=== PATIENT | male | born 1970 ===

== ENCOUNTER 2016-09-22 14:01 | Emergency (ER) | payer MEDICAID ==
[2016-09-22 14:01] VITALS: BMI 31.2
[2016-09-22 14:08] VITALS: BP 128/85; PULSE 96; RESP 20; TEMP 97.6; O2SAT 95
[2016-09-22] MEDS ORDERED: Lidocaine 2% w Epi 1:100,000 Inj IJ ONE (14:08)
[2016-09-22] MEDS ORDERED: Absorbable Gelatin Sponge Size 12-7 ONE (14:18)
--- NOTE | 2016-09-22 14:30 | ED PDOC ---
Upper Extremity Pain/Injury Time Seen by Provider: 09/22/16 14:09 Chief Complaint (Nursing): Finger,Hand,&Wrist Chief Complaint (Provider): Left Hand Injury History Per: Patient History/Exam Limitations: no limitations Onset/Duration Of Symptoms: Hrs (since 21:00 last night) Current Symptoms Are (Timing): Still Present Additional Complaint(s): 14:09 Ajit Rdz is a 45 year old male with a history of seizures that presents to the ED with a chief complaint of a left hand puncture wound that he sustained after leaning on the spoke of a metal fence at 9PM last night. The wound is located in the thenar aspect of the palm; patient states that it has been continuously bleeding bright red blood and is swollen, but denies any numbness, tingling, or decreased range of motion. Tetanus vaccination UTD. PMD: Deric Horton Past Medical History Reviewed: Historical Data, Nursing Documentation, Vital Signs Vital Signs: Last Vital Signs Temp 97.6 F 09/22/16 14:05 Pulse 96 H 09/22/16 14:05 Resp 20 09/22/16 14:05 BP 128/85 09/22/16 14:05 Pulse Ox 95 09/22/16 14:05 - Medical History PMH: Asthma (no longer per pt), Depression, Fractures (right ankle), HTN (no longer), Seizures Denies: Chronic Kidney Disease - Surgical History Surgical History: Endoscopy, Hernia Repair (umbilical ) - Family History Family History: States: Unknown Family Hx - Immunization History Hx Tetanus Toxoid Vaccination: Yes (UTD as of 3 years ago) - Home Medications Home Medications: Ambulatory Orders Medication Instructions Recorded Sertraline [Zoloft] 50 mg PO HS #0 tab 09/18/14 Lamotrigine [Lamotrigine ER] 200 mg PO BID 03/29/15 Amoxicillin 500 mg PO Q8 07/26/15 traMADol [Ultram] 50 mg PO TID PRN 07/26/15 Amoxicillin/Potassium Clav 1 each PO BID #10 tablet 08/11/15 [Amox-Clav 875-125 mg Tablet] Naproxen [Naprosyn] 500 mg PO Q12H #20 tab 04/02/16 Non-Formulary 1 ea .ROUTE Q6 #1 ea 04/02/16 Cephalexin [cephalexin] 500 mg PO BID #20 cap 09/22/16 - Allergies Allergies/Adverse Reactions: Allergies Allergy/AdvReac Type Severity Reaction Status Date / Time braswell AdvReac Mild URTICARIA Uncoded 09/22/16 14:05 Review of Systems Musculoskeletal: Positive for: Hand Pain (left hand puncture wound) Neurological: Negative for: Numbness, Other (no tingling) Physical Exam - Reviewed Nursing Documentation Reviewed: Yes Vital Signs Reviewed: Yes - Physical Exam Appears: Positive for: Non-toxic, No Acute Distress Head Exam: Positive for: ATRAUMATIC, NORMOCEPHALIC Skin: Positive for: Normal Color, Warm Eye Exam: Positive for: Normal appearance Extremity: Positive for: Normal ROM, Swelling (mild swelling of left hand), Other (left hand puncture wound 0.5 cm wide and very deep. Wound is actively bleeding bright red blood. ) Neurologic/Psych: Positive for: Alert, calculus teacher II-XII, Oriented - ECG O2 Sat by Pulse Oximetry: 95 (RA) Pulse Ox Interpretation: Normal Medical Decision Making Medical Decision Makin:25 Initial Impression: Left Hand Wound on Thenar Aspect of Left Palm Initial Plan: * Laceration Procedure Left Hand Wound * Reevaluation * gel-foam used to continue with to stop bleeding. lido/epi used to stop bleeding. Telfa and Kerlix used and extra provided. pt d/c with keflex. strongly avsed to have f/u advised not to wet and remove gel foam in 3 days. 14:30 Patient tolerated procedure well, with no immediate complications. Patient will be discharged home with Rx for Ultram. Counseling was provided and all questions were answered regarding diagnosis and need for follow up with hand specialist. There is agreement to discharge plan. Return if symptoms persist or worsen. Scribe Attestation: Documented by Nilam Mcduffie, acting as a scribe for Mary Simpson PA-C. Provider Scribe Attestation: All medical record entries made by the Scribe were at my direction and personally dictated by me. I have reviewed the chart and agree that the record accurately reflects my personal performance of the history, physical exam, medical decision making, and the department course for this patient. I have also personally directed, reviewed, and agree with the discharge instructions and disposition Procedures - Laceration/Wound Repair Hand Wound Length (cm): 0.5 Wound's Depth, Shape: into muscle, irregular, contused tissue Wound Explored: clean Irrigated w/ Saline (ccs): 250 (w/ betadine + NS) Anesthesia: Lidocaine w/ Epi Volume Anesthetic (ccs): 3 Wound Debrided: minimal Wound Repaired With: Skin adhesive (Gelfoam) Wound Complexity: Intermediate (small arterial bleed stopped) Sterile Dressing Applied?: Yes Disposition - Clinical Impression Clinical Impression: Puncture wound, Laceration of left hand - Patient ED Disposition Is Patient to be Admitted: No Counseled Patient/Family Regarding: Need For Followup, Rx Given - Disposition Referrals: Colton Chapa MD [Staff Provider] - Disposition: Routine/Home Disposition Time: 14:30 Condition: STABLE Prescriptions: Cephalexin [cephalexin] 500 mg PO BID #20 cap Instructions: Puncture Wound (ED)
== END 2016-09-22 14:41 | disposition home or self-care (01) ==
LOC: H.ER 14:01
DX: S61.432A Puncture wound without foreign body of left hand, initial encounter (principal); W22.8XXA Striking against or struck by other objects, initial encounter; Y92.89 Other specified places as the place of occurrence of the external cause

== ENCOUNTER 2017-02-22 22:33 | Emergency (ER) | payer MEDICAID ==
[2017-02-22 22:33] VITALS: BMI 31.2
[2017-02-22 22:58] VITALS: BP 145/80; PULSE 70; RESP 16; TEMP 98.6; O2SAT 99
--- NOTE | 2017-02-22 23:20 | ED PDOC ---
HPI: Wound Care - HPI Time Seen by Provider: 02/22/17 23:05 Chief Complaint (Nursing): Wound Check Chief Complaint (Provider): right ankle pain History Per: Patient Additional Complaint(s): Patient is s/p surgery to right ankle yesterday at [facility] and he presents to ED ryan stating that drain that was placed came out of wound. Patient has chronic open wound to right ankle and had debridement of wound done by a plastic surgeon at [facility] yesterday. He tried to contact the plastic surgeon and was unable to so he came here. Patient denies any fever. He is concerned that blood will pool in this wound due to drain not working. Past Medical History Reviewed: Historical Data, Nursing Documentation, Vital Signs Vital Signs: Last Vital Signs Temp 98.6 F 02/22/17 22:55 Pulse 70 02/22/17 22:55 Resp 16 02/22/17 22:55 BP 145/80 02/22/17 22:55 Pulse Ox 99 02/22/17 22:55 - Medical History PMH: Asthma, Depression, Fractures (right ankle), HTN, Seizures - Surgical History Surgical History: Endoscopy, Hernia Repair (umbilical ) Other surgeries: multiple surgeries to right ankle - Family History Family History: States: No Known Family Hx - Living Arrangements Living Arrangements: With Family - Social History Current smoker - smoking cessation education provided: No Alcohol: None Drugs: Denies - Immunization History Hx Tetanus Toxoid Vaccination: Yes (UTD as of 3 years ago) - Home Medications Home Medications: Ambulatory Orders Medication Instructions Recorded Sertraline [Zoloft] 50 mg PO HS #0 tab 09/18/14 Lamotrigine [Lamotrigine ER] 200 mg PO BID 03/29/15 Amoxicillin 500 mg PO Q8 07/26/15 traMADol [Ultram] 50 mg PO TID PRN 07/26/15 Amoxicillin/Potassium Clav 1 each PO BID #10 tablet 08/11/15 [Amox-Clav 875-125 mg Tablet] Naproxen [Naprosyn] 500 mg PO Q12H #20 tab 04/02/16 Non-Formulary 1 ea .ROUTE Q6 #1 ea 04/02/16 Cephalexin [cephalexin] 500 mg PO BID #20 cap 09/22/16 - Allergies Allergies/Adverse Reactions: Allergies Allergy/AdvReac Type Severity Reaction Status Date / Time braswell AdvReac Mild URTICARIA Uncoded 09/22/16 14:05 Review of Systems ROS Statement: Except As Marked, All Systems Reviewed And Found Negative Constitutional: Positive for: Fever (tactile) Musculoskeletal: Positive for: Other (drain fell out of right ankle wound) Physical Exam - Reviewed Nursing Documentation Reviewed: Yes Vital Signs Reviewed: Yes - Physical Exam Appears: Positive for: Well, Non-toxic, No Acute Distress Skin: Negative for: Rash Eye Exam: Positive for: Normal appearance Cardiovascular/Chest: Positive for: Regular Rate, Rhythm Respiratory: Positive for: Normal Breath Sounds Extremity: Positive for: Other (6 cm by 2 cm dehiscence noted to dorsum of right ankle, no active bleeding, no acute infection noted) Neurologic/Psych: Positive for: Alert, Oriented - ECG O2 Sat by Pulse Oximetry: 99 Pulse Ox Interpretation: Normal Medical Decision Making Medical Decision Makin46 year old with wound to right ankle Plan: Podiatry consult Patient was seen at bedside by podiatry resident, Dr. Reyes. She re-dressed wound and instructed patient to follow up GEORGE with surgeon who placed the drain. As per podiatry resident, patient is stable for discharge. Disposition - Clinical Impression Clinical Impression: Encounter for postoperative wound check - Patient ED Disposition Is Patient to be Admitted: No Counseled Patient/Family Regarding: Diagnosis, Need For Followup - Disposition Referrals: Julio Burns MD [Staff Provider] - Disposition: Routine/Home Disposition Time: 00:41 Condition: STABLE Additional Instructions: FOLLOW UP SOON POSSIBLE WITH SURGEON FROM [facility]. Instructions: Acute Wound Care (ED) Forms: [employer] (Czech)
[2017-02-23] MEDS ORDERED: Silver Sulfadiazine 1% CREAM (50 gm) TOP STA (00:40)
--- NOTE | 2017-02-23 01:15 | CP.PCM.CON ---
History of Present Illness - History of Present Illness History of Present Illness: 46 year old male patient seen in ED for right ankle wound. Patient is well known to podiatry service. Patient states that yesterday he had a wound debridement done to the wound on the front of his right ankle at [facility] with plastic surgeon Dr. Tripp, recommended to him by Dr. Burns. Patient states while at [facility] they placed a wound vac on his right ankle but was not checked for function prior to his discharge from that hospital. Patient states the vac cartridge has filled up and no longer works, and is afraid blood will start pooling in his wound. Patient states he has tried contacting Dr. Tripp with no success, which is why he presented to [place] ED. Patient states he also tried contacting the wound vac company to receive a new cartridge but was unsuccessful as well. Patient states he does not have any empty cartridges. Patient reports tenderness to his right ankle wound. Patient denies N/V/F/D/C/SOB. No other pedal complaints at this time. Review of Systems - Review of Systems All systems: reviewed and no additional remarkable complaints except (as per HPI ) Past Patient History - Infectious Disease Hx of Infectious Diseases: None - Tetanus Immunizations Tetanus Immunization: Unknown - Past Medical History & Family History Past Medical History?: Yes - Past Social History Alcohol: None Drugs: Denies - CARDIAC Hx Hypertension: Yes - PULMONARY Hx Asthma: Yes - NEUROLOGICAL Hx Seizures: Yes - HEENT Hx HEENT Problems: No - RENAL Hx Chronic Kidney Disease: No - HEMATOLOGICAL/ONCOLOGICAL Hx Blood Transfusions: Yes Hx Cirrhosis: Yes (per old chart) Other/Comment: HX OF LIVER TROUBLE - INTEGUMENTARY Hx Dermatological Problems: Yes (Wound Dehiscence right ankle) - MUSCULOSKELETAL/RHEUMATOLOGICAL Hx Fractures: Yes (right ankle) - GASTROINTESTINAL Hx Gastrointestinal Disorders: No - GENITOURINARY/GYNECOLOGICAL Hx Genitourinary Disorders: No - PSYCHIATRIC Hx Depression: Yes - SURGICAL HISTORY Other/Comment: right foot surgery - ANESTHESIA Hx Anesthesia: Yes Hx Anesthesia Reactions: No Meds Allergies/Adverse Reactions: Allergies Allergy/AdvReac Type Severity Reaction Status Date / Time braswell AdvReac Mild URTICARIA Uncoded 09/22/16 14:05 Physical Exam - Constitutional Appears: Well, Non-toxic, No Acute Distress - Extremities Exam Additional comments: RLE focused physical exam Vascular: DP/PT pulses palpable 2/4; capillary fill time < 3 sec x5; TG warm to warm; mild non-pitting edema noted to ankle joint Neurologic: gross sensation intact Dermatologic: Superficial lenticular-shaped ulceration s/p excisional debridement measuring approximately 5 x 2 x 0.1 cm noted at the ankle joint. Wound base is 100% granular with active bleeding noted at proximal apex, and erythematous wound edges. No malodor, purulence, or clinical signs of infection noted. Orthopedic: tenderness to palpation of right ankle wound - Neurological Exam Neurological exam: Alert, Oriented x3 - Psychiatric Exam Psychiatric exam: Normal Affect, Normal Mood Results - Vital Signs Recent Vital Signs: Last Vital Signs Temp 98.6 F 02/22/17 22:55 Pulse 70 02/22/17 22:55 Resp 16 02/22/17 22:55 BP 145/80 02/22/17 22:55 Pulse Ox 99 02/23/17 00:42 Assessment & Plan - Assessment and Plan (Free Text) Assessment: 46 y/o male patient with non-healing Right anterior ankle wound Plan: Patient seen and evaluated in ED Chart and vitals reviewed = afebrile Discussed with attending, Dr. Katy Franz applied to right ankle wound and dressed with telfa, 4x4s, kerlix, and an RYAN wrap Discussed with patient that he should return to [facility] and receive follow up care with Dr. Qasim Conklin per podiatry standpoint Thank you for this consult, please reconsult podiatry as needed
== END 2017-02-23 01:10 | disposition home or self-care (01) ==
LOC: H.ER 22:33
DX: Z48.89 Encounter for other specified surgical aftercare (principal); F32.9 Major depressive disorder, single episode, unspecified; I10 Essential (primary) hypertension

== ENCOUNTER 2017-02-26 13:18 | Emergency (ER) | payer MEDICAID ==
[2017-02-26 13:19] VITALS: BMI 31.2
[2017-02-26 13:42] VITALS: BP 117/85; PULSE 102; RESP 18; TEMP 98.5; O2SAT 99
--- NOTE | 2017-02-26 14:12 | ED PDOC ---
HPI: Wound Care - HPI Time Seen by Provider: 02/26/17 13:55 Chief Complaint (Nursing): Wound Check Chief Complaint (Provider): Wound Check History Per: Patient History Of Present Illness: Ajit is a 46 y/o male who presents to the ED for a wound check of the right lower leg. He is s/p wound debridement at [facility] last week. Seen here 4 days ago for similar complaint, and was seen by podiatry with dressing change at that time. States he has follow up with his surgeon scheduled for tomorrow. He has been having difficulty with insurance and obtaining wound-vacc machine, and was concerned about blood pooling, which prompted this ED visit. Patient is requesting dressing change today. Also wants to know if he can have his toe nails cut during ED visit. PMD: Deric Horton Exam Limitations: no limitations Current Symptoms Are (Timing): Still Present Location Of Injury: Right: Leg Past Medical History Reviewed: Historical Data, Nursing Documentation, Vital Signs Vital Signs: Last Vital Signs Temp 98.5 F 02/26/17 13:38 Pulse 102 H 02/26/17 13:38 Resp 18 02/26/17 13:38 BP 117/85 02/26/17 13:38 Pulse Ox 99 02/26/17 13:38 - Medical History PMH: Asthma, Depression, Fractures (right ankle), HTN, Seizures Denies: Chronic Kidney Disease - Surgical History Surgical History: Endoscopy, Hernia Repair (umbilical ) - Family History Family History: States: Unknown Family Hx - Immunization History Hx Tetanus Toxoid Vaccination: Yes (UTD as of 3 years ago) - Home Medications Home Medications: Ambulatory Orders Medication Instructions Recorded Sertraline [Zoloft] 50 mg PO HS #0 tab 09/18/14 Lamotrigine [Lamotrigine ER] 200 mg PO BID 03/29/15 Amoxicillin 500 mg PO Q8 07/26/15 traMADol [Ultram] 50 mg PO TID PRN 07/26/15 Amoxicillin/Potassium Clav 1 each PO BID #10 tablet 08/11/15 [Amox-Clav 875-125 mg Tablet] Naproxen [Naprosyn] 500 mg PO Q12H #20 tab 04/02/16 Non-Formulary 1 ea .ROUTE Q6 #1 ea 04/02/16 Cephalexin [cephalexin] 500 mg PO BID #20 cap 09/22/16 - Allergies Allergies/Adverse Reactions: Allergies Allergy/AdvReac Type Severity Reaction Status Date / Time braswell AdvReac Mild URTICARIA Uncoded 09/22/16 14:05 Review of Systems ROS Statement: Except As Marked, All Systems Reviewed And Found Negative Skin: Positive for: Other (Right lower leg wound) Physical Exam - Reviewed Nursing Documentation Reviewed: Yes Vital Signs Reviewed: Yes - Physical Exam Appears: Positive for: Well, Non-toxic, No Acute Distress Head Exam: Positive for: ATRAUMATIC, NORMAL INSPECTION, NORMOCEPHALIC Skin: Positive for: Normal Color, Warm, Dry Eye Exam: Positive for: EOMI, Normal appearance, PERRL Neck: Positive for: Normal, Painless ROM Extremity: Positive for: Other (5 cm luly-shaped wound, well healing. No surrounding erythema.) Neurologic/Psych: Positive for: Alert, Oriented - ECG O2 Sat by Pulse Oximetry: 99 (RA) Pulse Ox Interpretation: Normal Medical Decision Making Medical Decision Making: Time: 13:56 Initial Plan: --Pending dressing change --Patient is medically stable and will be discharged home --Advised importance of follow up with surgeon tomorrow --There is agreement to discharge plan. Return if symptoms persist or worsen. Scribe Attestation: Documented by Niki Hua, acting as a scribe for Shahana Lake PA-C Provider Scribe Attestation: All medical record entries made by the Scribe were at my direction and personally dictated by me. I have reviewed the chart and agree that the record accurately reflects my personal performance of the history, physical exam, medical decision making, and the department course for this patient. I have also personally directed, reviewed, and agree with the discharge instructions and disposition. Disposition - Clinical Impression Clinical Impression: Encounter for wound re-check - Patient ED Disposition Is Patient to be Admitted: No - Disposition Referrals: Podiatry Clinic [Outside] Disposition: Routine/Home Disposition Time: 14:15 Condition: FAIR Instructions: Acute Wound Care (ED) Forms: [employer] (Kosovan)
== END 2017-02-26 14:31 | disposition home or self-care (01) ==
LOC: H.ER 13:18
DX: Z48.01 Encounter for change or removal of surgical wound dressing (principal)

== ENCOUNTER 2017-05-18 23:33 | Emergency (ER) | payer MEDICAID ==
[2017-05-18 23:33] VITALS: BMI 31.2
[2017-05-19 00:06] VITALS: BP 139/70; PULSE 76; RESP 18; TEMP 98.7; O2SAT 97
--- NOTE | 2017-05-19 00:16 | ED PDOC ---
Lower Extremity Pain/Injury Time Seen by Provider: 05/18/17 23:54 Chief Complaint (Nursing): Lower Extremity Problem/Injury Chief Complaint (Provider): wound check History Per: Patient History/Exam Limitations: no limitations Onset/Duration Of Symptoms: Hrs Current Symptoms Are (Timing): Gone Now Additional History Per: Patient Additional Complaint(s): 46 y/o male presents for wound evaluation of right lower extremity. Patient has nonhealing wound to anterior right ankle x years; recently had 2 grafts placed by his plastic surgeon Dr. Tripp at [facility], the last 04/14/17. Patient states graft did not take, and has been discussing possibility of trying another one with his plastic surgeon. Patient notes tonight after showering he was patting his leg dry when blood became to "shoot" out of a "pin hole" from one of the wound edges. Patient states bleeding lasted a few seconds then resolved. Denies fever, worsening pain/redness/swelling to site, discharge from site, leg pain/swelling, calf tenderness. Past Medical History Reviewed: Historical Data, Nursing Documentation, Vital Signs Vital Signs: Last Vital Signs Temp 98.7 F 05/19/17 00:02 Pulse 76 05/19/17 00:02 Resp 18 05/19/17 00:02 BP 139/70 05/19/17 00:02 Pulse Ox 97 05/19/17 00:02 - Medical History PMH: Asthma, Depression, Fractures (right ankle), HTN, Seizures (due to trauma) Denies: Chronic Kidney Disease - Surgical History Surgical History: Endoscopy, Hernia Repair (umbilical ) - Family History Family History: States: Unknown Family Hx - Immunization History Hx Tetanus Toxoid Vaccination: Yes (UTD as of 3 years ago) - Home Medications Home Medications: Ambulatory Orders Medication Instructions Recorded Sertraline [Zoloft] 50 mg PO HS #0 tab 09/18/14 Lamotrigine [Lamotrigine ER] 200 mg PO BID 03/29/15 Amoxicillin 500 mg PO Q8 07/26/15 traMADol [Ultram] 50 mg PO TID PRN 07/26/15 Amoxicillin/Potassium Clav 1 each PO BID #10 tablet 08/11/15 [Amox-Clav 875-125 mg Tablet] Naproxen [Naprosyn] 500 mg PO Q12H #20 tab 04/02/16 Non-Formulary 1 ea .ROUTE Q6 #1 ea 04/02/16 Cephalexin [cephalexin] 500 mg PO BID #20 cap 09/22/16 - Allergies Allergies/Adverse Reactions: Allergies Allergy/AdvReac Type Severity Reaction Status Date / Time brsawell AdvReac Mild URTICARIA Uncoded 05/19/17 00:02 Review of Systems ROS Statement: Except As Marked, All Systems Reviewed And Found Negative Musculoskeletal: Positive for: Foot Pain Physical Exam - Reviewed Nursing Documentation Reviewed: Yes Vital Signs Reviewed: Yes - Physical Exam Appears: Positive for: Well, Non-toxic, No Acute Distress Head Exam: Positive for: ATRAUMATIC, NORMAL INSPECTION, NORMOCEPHALIC Skin: Positive for: Normal Color Eye Exam: Positive for: Normal appearance Cardiovascular/Chest: Positive for: Regular Rate, Rhythm Respiratory: Positive for: Normal Breath Sounds Pulses-Dorsalis Pedis (L): 2+ Pulses-Dorsalis Pedis (R): 2+ Pulses-Post. Tibialis (L): 2+ Pulses-Post. Tibialis (R): 2+ Extremity: Positive for: Normal ROM, Other ([id number] Superficial lenticular- shaped ulceration with wound dehiscence right anterior ankle. No odor, drainage , surrounding erythema noted. + varicosities noted to right lower extremity). Negative for: Calf Tenderness Neurologic/Psych: Positive for: Alert, Oriented - ECG O2 Sat by Pulse Oximetry: 97 - Progress ED Course And Treament: Telfa, pressure dressing applied. patient educated on findings, discharged with instrucitons to follow up Podiatry , PS. Return precautions given. Disposition - Clinical Impression Clinical Impression: Delayed postoperative wound closure, Ruptured varicosity - Patient ED Disposition Is Patient to be Admitted: No Counseled Patient/Family Regarding: Studies Performed, Diagnosis, Need For Followup - Disposition Disposition: Routine/Home Disposition Time: 00:22 Condition: STABLE Instructions: Varicose Veins (ED), Chronic Wound Care (ED), Wound Dehiscence ( ED) Forms: [employer] (Beninese)
[2017-05-19] MEDS ORDERED: Naproxen 500 MG TAB PO ONE ×2 (00:30→00:46)
== END 2017-05-19 01:18 | disposition home or self-care (01) ==
LOC: H.ER 23:33
DX: T81.89XA Other complications of procedures, not elsewhere classified, initial encounter (principal); I83.91 Asymptomatic varicose veins of right lower extremity

== ENCOUNTER 2017-08-05 10:18 | Emergency (ER) | payer MEDICAID ==
[2017-08-05 10:19] VITALS: BMI 31.2
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
--- NOTE | 2017-08-05 13:09 | RAD ---
PROCEDURE: Right Ankle Radiographs. HISTORY: ankle wound COMPARISON: Comparison made with radiographs right ankle 01/23/2017. FINDINGS: BONES: Current study demonstrates in situ ORIF fixation plate attached to the anteromedial margin of the left distal tibia and anterior talus. . Re- demonstrated is a fracture traversing the inferior 1/3 of the fixation plate traversing through the left 6th inferior screw hole. The remaining fixation hardware intact. . JOINTS: Apparent postoperative fusion right tibiotalar and fibulotalar articulation. SOFT TISSUES: There may be some minor of bilateral soft tissue swelling. OTHER FINDINGS: None. IMPRESSION: No significant interval change. In situ ORIF fixation plate attached the anteromedial margin of the distal tibia and anterior talus. Re- demonstrated is a fracture line traversing the inferior 1/3 of the fixation plate traversing the left inferior 6th screw hole unchanged from prior study. Remaining hardware intact Postoperative fusion changes of the tibiotalar and fibulotalar articulation there appears be mild surrounding soft tissue swelling
--- NOTE | 2017-08-05 14:14 | ED PDOC ---
- Laboratory Results Result Diagrams: 08/05/17 16:52 08/05/17 16:52 - ECG O2 Sat by Pulse Oximetry: 100 (RA) Pulse Ox Interpretation: Normal Medical Decision Making Medical Decision Making: Time: 1400 --Patient was endorsed to provider by Shahana Lake PA-C. Pending podiatry consult and re-evaluation. Time: 1443 --Patient is refusing Ultram 50mg for pain. Requesting Percocet. --Percocet 5/325mg PO ordered. --Podiatry consult still pending. Time: 1630 --Patient evaluated by Podiatry resident; recommends checking CMP, CBC, ESR and blood culture Time: 1803 --Labs reviewed: ESR slightly elevated. --Podiatry consult: patient can follow up as outpatient/diagnostics to be done outpatient --Upon provider reevaluation patient is medically stable and requires no further treatment in the ED at this time. Patient will be discharged home with Rx for Percocet 5/325mg #10 tablets. Counseling was provided and all questions were answered regarding diagnosis and need for follow up with book salesman. There is agreement to discharge plan. Return if symptoms persist or worsen. Clinical Impression: Ankle pain Scribe Attestation: Documented by Vicky Summers, acting as a scribe for Vi Jaquez PA-C. Provider Scribe Attestation: All medical record entries made by the Scribe were at my direction and personally dictated by me. I have reviewed the chart and agree that the record accurately reflects my personal performance of the history, physical exam, medical decision making, and the department course for this patient. I have also personally directed, reviewed, and agree with the discharge instructions and disposition. Disposition - Clinical Impression Clinical Impression: Ankle pain - POA Present On Arrival: None - Disposition Disposition: Routine/Home Disposition Time: 18:02 Condition: IMPROVED Prescriptions: oxyCODONE/Acetaminophen [Percocet 5/325 mg Tab] 1 ea PO Q6 PRN #10 tab PRN Reason: Pain, Severe (8-10) Instructions: Arthralgia (ED)
[2017-08-05] MEDS ORDERED: Oxycodone/Acetaminophen 5/325 mg Tab PO ONE (14:43)
[2017-08-05] MEDS ORDERED: Oxycodone/Acetaminophen 5/325 mg Tab ONE (14:56)
[2017-08-05 16:56] LABS: BASO % 0.6 % (0.0-2.0); EOS # 0.1 K/uL (0.0-0.7); HEMOGLOBIN 14.3 g/dL (12.0-18.0); LYMPH # 1.6 K/uL (1.0-4.3); LYMPH % 36.8 % (20.0-40.0); MEAN CELL VOLUME 99.5 fl (80.0-94.0); MEAN CORPUSCULAR HEMOGLOBIN 34.2 pg (27.0-31.0); MEAN CORPUSCULAR HGB CONC 34.4 g/dL (33.0-37.0); MEAN PLATELET VOLUME 9.4 fl (7.2-11.7); MONO # 0.5 K/uL (0.0-0.8); MONO % 12.2 % (0.0-10.0); NEUT # 2.1 K/uL (1.8-7.0); NEUT % 47.4 % (50.0-75.0); NRBC % 0.1 % (0.0-0.0); RBC 4.17 Mil/uL (4.40-5.90); RED CELL DISTRIBUTION WIDTH 15.8 % (11.5-14.5); WHITE BLOOD COUNT 4.4 K/uL (4.8-10.8)
[2017-08-05 17:07] LABS: ALT/SGPT 59 U/L (21-72); AST/SGOT 98 U/L (17-59); BLOOD UREA NITROGEN 8 mg/dl (9-20); CALCIUM 9.9 mg/dL (8.4-10.2); GFR AFRICAN-AMERICAN > 60; GFR NON-AFRICAN AMERICAN > 60
[2017-08-05 18:15] VITALS: BP 132/74; PULSE 82; RESP 19; TEMP 98.3
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
[2017-08-08 05:30] VITALS: O2SAT 100
== END 2017-08-05 18:16 | disposition home or self-care (01) ==
LOC: H.ER 10:18
DX: M25.571 Pain in right ankle and joints of right foot (principal); V76.4XXA Person boarding or alighting from bus injured in collision with other nonmotor vehicle, initial encounter; Z86.59 Personal history of other mental and behavioral disorders; I10 Essential (primary) hypertension; J45.909 Unspecified asthma, uncomplicated; R56.9 Unspecified convulsions

== ENCOUNTER 2017-09-04 07:53 | Day surgery (SDC) | payer MEDICAID ==
[2017-08-29 14:00] VITALS: BMI 30.1
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
--- NOTE | 2017-09-04 08:15 | CP.SDSHP ---
Same Day Surgery H & P - History Proposed Procedure: Right ankle bone biopsy Pre-Op Diagnosis: r/o osteomyelitis right ankle - Previous Medical/Surgical History Neuro: Seizure Disorder Pain: 4.Moderate Pain Previous Surgical History: Right ankle fusion - Allergies Allergies: Allergies braswell Adverse Reaction (Mild, Uncoded 05/19/17 00:02) URTICARIA - Physical Exam Mental Status: Alert & Oriented x3 Neuro: WNL Heart: WNL Lungs: WNL GI: WNL - {Optional Preform as Required} Integument: Other (Cicatrix with increased redness along its medial portion noted to anterior ankle) - Impression Impression: Pt was seen and examined in [facility]. Pt NPO status was confirmed. All Pre-op testing and clearance was in the chart. Pt has exhausted all conservative treatment at this time and is opting for surgical intervention. Pt was explained procedure and post-operative course. All pt's questions were answered to satisfaction. No guarantees were made. Pt understands all risks, benefits and complications of procedure. Pt will follow-up with Dr. Burns Pt. Evaluated Today:Candidate for Anesthesia & Procedure: Yes - Date & Time Date: 09/04/17 Time: 08:35 Short Stay Discharge - Short Stay Discharge Admitting Diagnosis/Reason for Visit: M89.9 Disposition: HOME/ ROUTINE Referrals: Deric Horton MD [Primary Care Provider] - Follow-up: Follow up with Dr. Burns in podiatry clinic next week 09/11/17 Progress Note/Discharge Note with Instructions: --Patient in good/stable condition for discharge home. Pt to resume medications per medical reconciliation. Resume regular diet. Please keep dressing clean, dry, & intact to surgical site, use plastic bag over bandage for showering, wear post op shoe at all times when ambulating, call clinic if you see signs of infection (redness, swelling, malodor), please make an appointment to see Dr. Burns in clinic within 1 week for post-op check.
[2017-09-04] MEDS ORDERED: Lidocaine 1% Inj (20ml) IJ ONE (08:18)
[2017-09-04] MEDS ORDERED: Bupivacaine 0.5% Inj(30mL) IJ ONE (08:18)
[2017-09-04] MEDS ORDERED: ceFAZolin IV 2 gm in Dextrose 2 GM/50 ML BAG IVPB ONE (08:18)
[2017-09-04] MEDS ORDERED: Bacitracin Ointment 30 GM TUBE ONE (08:38)
[2017-09-04] MEDS ORDERED: Lidocaine 1% w Epi 1:100,000 Inj ONE (08:38)
[2017-09-04] MEDS ORDERED: Sodium Chloride 0.9% 1,000 ML IV SCH (08:45)
[2017-09-04 08:46] LABS: MEAN CELL VOLUME 99.7 fl (80.0-94.0); MEAN CORPUSCULAR HEMOGLOBIN 34.3 pg (27.0-31.0); MEAN CORPUSCULAR HGB CONC 34.4 g/dL (33.0-37.0); RBC 4.09 Mil/uL (4.40-5.90); RED CELL DISTRIBUTION WIDTH 15.7 % (11.5-14.5); WHITE BLOOD COUNT 4.9 K/uL (4.8-10.8)
[2017-09-04 08:48] VITALS: RESP 18
[2017-09-04 09:02] LABS: BLOOD UREA NITROGEN 7 mg/dl (9-20); CALCIUM 9.1 mg/dL (8.4-10.2); GFR AFRICAN-AMERICAN > 60; GFR NON-AFRICAN AMERICAN > 60
[2017-09-04] MEDS ORDERED: Propofol 10 mg/ml Inj (20 ML) ONE ×2 (09:17→10:24)
[2017-09-04] MEDS ORDERED: Midazolam 2 MG/2 ML VIAL ONE (09:17)
[2017-09-04] MEDS: Bupivacaine 0.5% Inj(30mL) ONE ×2 (09:35→10:35)
[2017-09-04] MEDS: Lidocaine 1% Inj (20ml) ONE ×2 (09:35→09:45)
[2017-09-04] MEDS ORDERED: Lactated Ringer's 500 ML IV ONE ×2 (10:01→10:38)
--- NOTE | 2017-09-04 10:50 | PCM.SURG1 ---
Surgeon's Initial Post Op Note - Surgeon's Notes Surgeon: Dr. Burns [place] Operator: Yahaira Sparks PGY1 Type of Anesthesia: IV Sedation, Local (15cc 1:1 mixture 1% lidocaine plain & 0.5% marcaine plain) Anesthesia Administered By: Dr. Huff Pre-Operative Diagnosis: Right ankle pain + nonhealing wound r/o osteomyelitis Operative Findings: See operative report. Materials: 3-0 vicryl, 4-0 vicryl, 4- 0 nylon, DPM bone putty 0.5cc. Injectables 6cc 1% lidocaine plain, 9cc 0.5% marcaine plain Post-Operative Diagnosis: Right ankle pain + nonhealing wound r/o osteomyelitis Operation Performed: Right ankle bone biopsy Specimen/Specimens Removed: 1) Right bone culture 2) Deep bone WCx Estimated Blood Loss: EBL {In ML}: 15 Blood Products Given: N/A Drains Used: No Drains Post-Op Condition: Good Date of Surgery/Procedure: 09/04/17 Time of Surgery/Procedure: 10:50
[2017-09-04] MEDS ORDERED: Oxycodone/Acetaminophen 5/325 mg Tab PO PRN ×2 (10:52)
[2017-09-04] MEDS ORDERED: HYDROmorphone 0.5 mg/0.5 ml ISec ONE (10:54)
[2017-09-04] MEDS ORDERED: DiphenhydrAMINE 50 mg/ml Inj IVP PRN (10:58)
[2017-09-04] MEDS: HYDROmorphone 0.5 mg/0.5 ml ISec IVP PRN ×3 (11:02→11:32)
--- NOTE | 2017-09-04 14:33 | OP ---
PROCEDURE DATE: 09/04/2017 PREOPERATIVE DIAGNOSIS: Right ankle nonhealing wound with acute osseous radiographic finding. POSTOPERATIVE DIAGNOSIS: Right ankle nonhealing wound with acute osseous radiographic finding. NAME OF PROCEDURE: Right ankle bone biopsy. SURGEON: Julio Burns DPM GENERAL LABOR: Monet Sparks DPM, PGY-1 ANESTHESIOLOGIST: Kip Huff MD TYPE OF ANESTHESIA: IV sedation plus local. INDICATIONS: The patient is a 46-year-old male with the above diagnosis. The patient has exhausted all conservative treatment at this time and now requires surgical intervention. The patient signed the consent after careful explanation of the risks, benefits, complications, and alternatives for surgical procedure. No guarantees were given or implied. N.p.o. status was confirmed prior to taking the patient to the operating room. PREPARATION: The patient was brought into the operating room and placed on the operating room table in a supine position. A time-out was performed for identification of the correct patient and procedure. The patient received a total of 15 mL of 1:1 mixture of 1% lidocaine plain and 0.5% Marcaine plain in a local ring block fashion to the anterior aspect of the right tibia at the level of the ankle joint. The right ankle and foot were then prepped and draped in normal sterile manner and the procedure began. At this time, a sterile tourniquet was applied to the right ankle proximal to the site of the future incision. DESCRIPTION OF PROCEDURE: Attention was then directed to the anterior aspect of the right tibia at the level of the ankle joint. Using a #15 blade, a linear longitudinal 3-cm incision was made. Using blunt dissection, the dissection was then continued down to the deep subcutaneous tissue layer. At this time, an additional 6 mL of 1% lidocaine plain was injected to ensure adequate local anesthesia. Care was taken to identify and retract all vital neurovascular structures. A freer elevator was utilized to remove all tissue and expose the anterior aspect of the right tibial bone. At this time, a bone trephine was used to obtain a bone biopsy from the anterior aspect of the right tibia. The bone was then sent for pathology, culture, and histology analysis. A wound culture was also performed at the site of the bone biopsy. At this time, 0.5 mL of DBM injectable, bone putty was then injected into the site of the bone biopsy. The wound was then copiously irrigated with sterile normal saline. Subcutaneous tissue was re-approximated using 3-0 Vicryl and 4-0 Vicryl sutures. The skin layer was then closed with 4-0 nylon sutures. At this time, 9 additional mL of 0.5% Marcaine plain was injected into the right ankle joint at the site of the surgical incision. The surgical site was then dressed with a [id number] dressing, 4 x 4 gauze and Kerlix with light Calos bandage overlying. The previously noted anterior ankle nonhealing wound was also dressed with bacitracin and a dry sterile dressing. POSTOPERATIVE CONDITION: The patient tolerated the local anesthesia and procedure well and was escorted to the recovery room with neurovascular status intact to the right lower extremity. The patient will be full weightbearing with the use of Cam walking boot. The patient will be discharged home in stable condition and will follow up with Dr. Burns in [facility] within 1 week. Monet Sparks DPM Julio Burns DPM
[2017-09-04 18:52] VITALS: BP 138/75; PULSE 89; TEMP 98.1; O2SAT 97
--- NOTE | 2017-09-05 09:15 | RAD ---
PROCEDURE: Right Foot Radiographs. HISTORY: s/p right ankle bone biopsy COMPARISON: None. FINDINGS: BONES: Osteopenia seen throughout the right foot which may be a function of disuse in this 46-year-old patient. Clinically correlate. No acute fracture is identified throughout the forefoot or midfoot with calcaneus intact. Postoperative fusion at the tibiotalar joint reiterated. Degenerative changes are reiterated at the talonavicular joint. JOINTS: As above. SOFT TISSUES: Prior soft tissue edema appears to have resolved. OTHER FINDINGS: None. IMPRESSION: No acute fracture, subluxation or dislocation with prior tibiotalar arthrodesis hardware intact grossly. Resolution of soft tissue edema at the dorsal foot noted in the interval. Diffuse osteopenia may indicate disuse etiology.
== END 2017-09-04 17:00 | disposition short-term general hospital (02) ==
LOC: H.OPSURG 07:53
PROVIDERS: ATTEND Podiatrist
DX: M25.571 Pain in right ankle and joints of right foot (principal); G89.29 Other chronic pain; G40.909 Epilepsy, unspecified, not intractable, without status epilepticus
CPT/HCPCS: 20240; 36415; 73620; 80048; 85027; 87070; 88304; 97116; 97161; C1713; G8978; G8979; J0690; J1170; J2001; J2250; J2405; J2704; J2765; J3010; J7120

== ENCOUNTER 2017-09-04 17:11 | Emergency (ER) | payer MEDICAID ==
[2017-09-04 17:12] VITALS: BMI 30.1
[2017-09-04] MEDS ORDERED: Sodium Chloride 0.9% 1,000 ML IV STA (17:33)
[2017-09-04 18:23] LABS: BASO % 0.7 % (0.0-2.0); EOS % 0.5 % (0.0-4.0); HEMOGLOBIN 13.4 g/dL (12.0-18.0); LYMPH # 0.6 K/uL (1.0-4.3); MEAN CELL VOLUME 100.1 fl (80.0-94.0); MEAN CORPUSCULAR HEMOGLOBIN 34.3 pg (27.0-31.0); MEAN CORPUSCULAR HGB CONC 34.3 g/dL (33.0-37.0); MEAN PLATELET VOLUME 9.2 fl (7.2-11.7); MONO # 0.3 K/uL (0.0-0.8); MONO % 9.9 % (0.0-10.0); NEUT # 2.3 K/uL (1.8-7.0); NEUT % 70.9 % (50.0-75.0); NRBC % 0.1 % (0.0-0.0); RBC 3.9 Mil/uL (4.40-5.90); RED CELL DISTRIBUTION WIDTH 15.4 % (11.5-14.5); WHITE BLOOD COUNT 3.2 K/uL (4.8-10.8)
[2017-09-04 18:44] LABS: ALB/GLOB RATIO 0.9 (1.0-2.1); ALBUMIN 3.7 g/dL (3.5-5.0); ALT/SGPT 87 U/L (21-72); AST/SGOT 172 U/L (17-59); BLOOD UREA NITROGEN 5 mg/dl (9-20); CALCIUM 8.7 mg/dL (8.4-10.2); GFR AFRICAN-AMERICAN > 60; GFR NON-AFRICAN AMERICAN > 60
--- NOTE | 2017-09-04 18:56 | ED PDOC ---
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 Patient was in PACU, undergoing a procedure with podiatry service. At PACU patient had woken up from his anesthesia but suddenly became altered, confused and lethargic. Patient denies taking any other substance while in the PACU room despite nurse report that he had alcohol on breath. Patient reports currently feeling better. He states he had nausea while in PICU but has since resolved. He also reports thirst and would like to eat. Past Medical History Reviewed: Historical Data, Nursing Documentation, Vital Signs Vital Signs: Last Vital Signs Temp 98 F 09/04/17 17:23 Pulse 88 09/04/17 17:23 Resp 14 09/04/17 17:23 BP 108/63 09/04/17 17:23 Pulse Ox 95 09/04/17 17:23 - Medical History PMH: Asthma, Fractures (right ankle), Seizures (last one 2014) Denies: Chronic Kidney Disease - Surgical History Surgical History: Endoscopy, Hernia Repair (umbilical ) - Family History Family History: States: Unknown Family Hx - Immunization History Hx Tetanus Toxoid Vaccination: Yes (UTD as of 3 years ago) - Home Medications Home Medications: Ambulatory Orders Medication Instructions Recorded Sertraline [Zoloft] 50 mg PO HS #0 tab 09/18/14 Lamotrigine [Lamotrigine ER] 200 mg PO BID 03/29/15 traMADol [Ultram] 50 mg PO TID PRN 07/26/15 Ibuprofen [Motrin Tab] 600 mg PO Q8 PRN #60 tab 09/04/17 - Allergies Allergies/Adverse Reactions: Allergies Allergy/AdvReac Type Severity Reaction Status Date / Time braswell AdvReac Mild URTICARIA Uncoded 09/04/17 17:23 Review of Systems ROS Statement: Except As Marked, All Systems Reviewed And Found Negative Musculoskeletal: Positive for: Foot Pain Physical Exam - Reviewed Nursing Documentation Reviewed: Yes Vital Signs Reviewed: Yes - Physical Exam Appears: Positive for: Non-toxic, No Acute Distress (but tired appearing.) Head Exam: Positive for: ATRAUMATIC, NORMAL INSPECTION, NORMOCEPHALIC Skin: Positive for: Normal Color, Warm, Dry Eye Exam: Positive for: Normal appearance, EOMI, PERRL ENT: Positive for: Other (tacky mucous membranes.) Neck: Positive for: Painless ROM, Supple Cardiovascular/Chest: Positive for: Regular Rate, Rhythm. Negative for: Murmur Respiratory: Positive for: Normal Breath Sounds. Negative for: Respiratory Distress Gastrointestinal/Abdominal: Positive for: Normal Exam, Soft. Negative for: Tenderness Extremity: Positive for: Normal ROM. Negative for: Deformity, Swelling Neurologic/Psych: Positive for: Alert, station captain II-XII (intact), Oriented. Negative for: Motor/Sensory Deficits, Aphasia, Facial Droop - Laboratory Results Result Diagrams: 09/04/17 18:19 09/04/17 18:19 - ECG O2 Sat by Pulse Oximetry: 95 (RA) Pulse Ox Interpretation: Normal Medical Decision Making Medical Decision Making: Initial Impression: AMS. Differential includes but not limited to dehydration, delayed sedative reaction, electrolyte imbalance. Initial Plan: --CBC w/ differential --Alcohol serum --CMP --Magnesium --Phosphorus --Sodium Chloride 1,000 ml IV 1,000 mls/hr --Reevaluation BAL demonstrates alcohol. Pt reports that his last drink was 2 days prior to surgery. Educated on dangers of alcoholism. Stable for dc home. Advised no alcohol during surgical recovery. Scribe Attestation: Documented by Phoenix Everett, acting as a scribe for Nika Chau MD Provider Scribe Attestation: All medical record entries made by the Scribe were at my direction and personally dictated by me. I have reviewed the chart and agree that the record accurately reflects my personal performance of the history, physical exam, medical decision making, and the department course for this patient. I have also personally directed, reviewed, and agree with the discharge instructions and disposition. Disposition - Clinical Impression Clinical Impression: Alcohol use, S/P ankle arthrodesis - Disposition Referrals: Alcoholics Anonymous [Outside] Podiatry Clinic [Outside] - 09/11/17 Disposition: Routine/Home Disposition Time: 20:50 Condition: IMPROVED Additional Instructions: CONTINUE ALL YOUR HOME MEDICATIONS PRESCRIBED FOLLOW UP WITH DR COLLINS IN CLINIC NEXT WEEK Prescriptions: Ibuprofen [Motrin Tab] 600 mg PO Q8 PRN #60 tab PRN Reason: Pain, Moderate (4-7) Instructions: How to Use Crutches, Alcohol Abuse and Alcoholism (DC), Managing Pain After Surgery Forms: [facility] (Sinhala)
[2017-09-05 03:27] VITALS: BP 111/72; PULSE 82; RESP 17; TEMP 98.1
[2017-09-11 14:59] VITALS: O2SAT 95
== END 2017-09-04 21:00 | disposition home or self-care (01) ==
LOC: H.ER 17:11
DX: Z98.1 Arthrodesis status (principal); F10.10 Alcohol abuse, uncomplicated; J45.909 Unspecified asthma, uncomplicated
CPT/HCPCS: 80053; 80320; 82948; 83735; 84100; 85025; 99285; J7040

== ENCOUNTER 2018-04-05 05:41 | Emergency (ER) | payer MEDICAID ==
[2018-04-05 05:41] VITALS: BMI 30.1
[2018-04-05] MEDS ORDERED: Oxycodone/Acetaminophen 5/325 mg Tab PO STA (06:54)
[2018-04-05] MEDS ORDERED: Tdap Vaccine 0.5 ml Vial (10-64 yrs) IM ONE ×2 (06:54→07:11)
[2018-04-05] MEDS ORDERED: Oxycodone/Acetaminophen 5/325 mg Tab ONE (07:10)
--- NOTE | 2018-04-05 07:48 | ED PDOC ---
- ECG O2 Sat by Pulse Oximetry: 98 (RA) Pulse Ox Interpretation: Normal Medical Decision Making Medical Decision Making: Time: 0700 -- Patient endorsed to me by Dr. Calloway, pending XR, re-evaluation and final ER disposition. Scribe Attestation: Documented by Sammy Macedo, acting as a scribe Myrna Carlson MD. Provider Scribe Attestation: All medical record entries made by the Scribe were at my direction and personally dictated by me. I have reviewed the chart and agree that the record accurately reflects my personal performance of the history, physical exam, medi mari decision making, and the department course for this patient. I have also personally directed, reviewed, and agree with the discharge instructions and disposition. Disposition - Clinical Impression Clinical Impression: Puncture wound of hand - POA Present On Arrival: None - Disposition Referrals: [facility] [Outside] Disposition: Routine/Home Disposition Time: 07:59 Condition: FAIR Prescriptions: Naproxen [Naprosyn] 500 mg PO Q12H #20 tab Sulfamethoxazole/Trimethoprim [Bactrim DS 800 mg-160 mg] 1 tab PO BID #20 tab Instructions: Wound Care Forms: [employer] (Welsh)
--- NOTE | 2018-04-05 08:03 | RAD ---
PROCEDURE: Right Hand Radiographs. HISTORY: right hand pain nail injury COMPARISON: Comparison is made with 03/07/2015 FINDINGS: BONES: No evidence of acute fracture. Large callus formation and deformity noted in the 5th metacarpal bone due to healing old fracture. JOINTS: Normal. No osteoarthritic changes. SOFT TISSUES: Normal. OTHER FINDINGS: None. IMPRESSION: No evidence of radiopaque foreign body in the soft tissue of the right hand. Old fracture of the 5th metacarpal bone.
[2018-04-05 15:01] VITALS: BP 142/84; PULSE 77; RESP 16; TEMP 98.2; O2SAT 100
== END 2018-04-05 09:00 | disposition home or self-care (01) ==
LOC: H.ER 05:41
DX: S61.431A Puncture wound without foreign body of right hand, initial encounter (principal); Z23 Encounter for immunization; W01.198A Fall on same level from slipping, tripping and stumbling with subsequent striking against other object, initial encounter

== ENCOUNTER 2018-10-10 09:48 | Emergency (ER) | payer MEDICAID ==
[2018-10-10 09:51] VITALS: BMI 28.4
[2018-10-10 09:53] VITALS: BP 122/78; PULSE 100; RESP 18; TEMP 98.4; O2SAT 99
--- NOTE | 2018-10-10 10:29 | ED PDOC ---
Lower Extremity Pain/Injury Additional Complaint(s): 47 y/o M is presenting with complaints of rt ankle pain and swelling x 1 day that began after he increased amt of physical activity which included increased stair climbing. He denied any twisting or abnormal movement of the ankle. Of note patient had rt ankle fusion surgery 07/2014, debridement of anterior wound and graft 03/2015, and skin graft to rt ankle [facility] 03/2017. PMH: epilepsy, anxiety, depression, alcoholic cirrhosis, seizure Meds: lamictal 200mg QD, folic acid Allergies: NKDA Surghx: see above Famhx: noncontributory Sochx: denies <Estefani Skinner - Last Filed: 10/10/18 10:30> <[place] - Last Filed: 10/10/18 11:10> Time Seen by Provider: 10/10/18 10:03 Chief Complaint (Nursing): Lower Extremity Problem/Injury Supervising Attending Note - Supervising Attending Note The Documented history was done by the: Physician Pediatric Intensive Physician The documented physical exam was done by the: Physician Pediatric Intensive Physician The documented procedures were done by the: Physician Pediatric Intensive Physician - Attestation: I have personally seen and examined this patient.: Yes I have fully participated in the care of the patient.: Yes I have reviewed all pertinent clinical information, including history, physical exam and plan: Yes - Notes: Notes:: ankle pain. <[place] Woods - Last Filed: 10/10/18 11:10> Past Medical History Vital Signs: Last Vital Signs Temp 98.4 F 10/10/18 09:51 Pulse 100 H 10/10/18 09:51 Resp 18 10/10/18 09:51 BP 122/78 10/10/18 09:51 Pulse Ox 99 10/10/18 09:51 - Medical History PMH: Asthma, Fractures (right ankle), Seizures (last one 2014) Denies: Chronic Kidney Disease - Surgical History Surgical History: Endoscopy, Hernia Repair (umbilical ) - Family History Family History: States: Unknown Family Hx - Immunization History Hx Tetanus Toxoid Vaccination: Yes (UTD as of 3 years ago) <Estefani Skinner - Last Filed: 10/10/18 10:30> Vital Signs: Last Vital Signs Temp 98.4 F 10/10/18 09:51 Pulse 100 H 10/10/18 09:51 Resp 18 10/10/18 09:51 BP 122/78 10/10/18 09:51 Pulse Ox 99 10/10/18 10:32 <[place] - Last Filed: 10/10/18 11:10> - Home Medications Home Medications: Ambulatory Orders Medication Instructions Recorded Sertraline [Zoloft] 50 mg PO HS #0 tab 09/18/14 Lamotrigine [Lamotrigine ER] 200 mg PO BID 03/29/15 traMADol [Ultram] 50 mg PO TID PRN 07/26/15 Ibuprofen [Motrin Tab] 600 mg PO Q8 PRN #60 tab 09/04/17 Naproxen [Naprosyn] 500 mg PO Q12H #20 tab 04/05/18 Sulfamethoxazole/Trimethoprim 1 tab PO BID #20 tab 04/05/18 [Bactrim DS 800 mg-160 mg] Ibuprofen [Motrin] 600 mg PO TID 7 Days tab 10/10/18 - Allergies Allergies/Adverse Reactions: Allergies Allergy/AdvReac Type Severity Reaction Status Date / Time braswell AdvReac Mild URTICARIA Uncoded 09/04/17 17:23 Physical Exam - Physical Exam Cardiovascular/Chest: Positive for: Regular Rate, Rhythm Respiratory: Positive for: Normal Breath Sounds Pulses-Dorsalis Pedis (L): 2+ Pulses-Dorsalis Pedis (R): 2+ <[place] - Last Filed: 10/10/18 11:10> - ECG O2 Sat by Pulse Oximetry: 99 <Estefani Skinner - Last Filed: 10/10/18 10:30> - ECG Pulse Ox Interpretation: Normal - Progress ED Course And Treament: 1110: Dr. Correa at bedside and will splint pt. Pt. to fu with her at the clinic. AAOx3. Agreeable. <[place] - Last Filed: 10/10/18 11:10> Disposition <Estefani Skinner - Last Filed: 10/10/18 10:30> - Patient ED Disposition Is Patient to be Admitted: No Counseled Patient/Family Regarding: Studies Performed, Diagnosis, Need For Followup - Disposition Disposition: Routine/Home Disposition Time: 10:00 <[place] - Last Filed: 10/10/18 11:10> - Clinical Impression Clinical Impression: Nonunion of arthrodesis - Disposition Referrals: Nikkie Correa DPM [Medical Doctor] - Condition: STABLE Additional Instructions: Return if not better in 3 days. Prescriptions: Ibuprofen [Motrin] 600 mg PO TID 7 Days tab Instructions: Weight-Bearing Restrictions
--- NOTE | 2018-10-10 11:27 | CP.PCM.CON ---
History of Present Illness - History of Present Illness History of Present Illness: Podiatry consult note for Dr. Correa 47 y/o with pmhx of depression, alcoholic cirrhosis, epilepsy is seen and evaluated with complains of rt ankle pain and swelling x 1 day that began after he increased amt of physical activity which included increased stair climbing and cleaning. Patient is well known to the podiatry service. He denied any twisting or abnormal movement of the ankle. Patient had rt ankle fusion surgery 07/2014, debridement of anterior wound and graft 03/2015, and skin graft to rt ankle [facility] 03/2017. PMH: epilepsy, anxiety, depression, alcoholic cirrhosis, seizure Meds: lamictal 200mg QD, folic acid Allergies: NKDA Surghx: see above Famhx: noncontributory Sochx: denies. Past Patient History - Infectious Disease Hx of Infectious Diseases: None - Tetanus Immunizations Tetanus Immunization: Unknown - Past Medical History & Family History Past Medical History?: Yes - Past Social History Smoking Status: Current Some Days Smoker - PULMONARY Hx Asthma: Yes - NEUROLOGICAL Hx Seizures: Yes (last one 2014) - HEENT Hx HEENT Problems: No - RENAL Hx Chronic Kidney Disease: No - ENDOCRINE/METABOLIC Hx Endocrine Disorders: No - HEMATOLOGICAL/ONCOLOGICAL Hx Blood Disorders: No Hx Blood Transfusions: No Hx Blood Transfusion Reaction: No Hx Cirrhosis: Yes (per old chart) Other/Comment: HX OF LIVER TROUBLE - INTEGUMENTARY Hx Dermatological Problems: Yes Hx Cellulitis: Yes Other/Comment: skin graft - MUSCULOSKELETAL/RHEUMATOLOGICAL Hx Fractures: Yes (right ankle) - GASTROINTESTINAL Hx Gastrointestinal Disorders: No - GENITOURINARY/GYNECOLOGICAL Hx Genitourinary Disorders: No - SURGICAL HISTORY Hx Surgeries: Yes Other/Comment: right ankle surgery with skin graft and rods - ANESTHESIA Hx Anesthesia: Yes Hx Anesthesia Reactions: No Hx Malignant Hyperthermia: No Meds Home Medications: Home Medication List Medication Instructions Recorded Confirmed Type Ibuprofen [Motrin] 600 mg PO TID 7 Days tab 10/10/18 Rx Allergies/Adverse Reactions: Allergies Allergy/AdvReac Type Severity Reaction Status Date / Time braswell AdvReac Mild URTICARIA Uncoded 09/04/17 17:23 Physical Exam - Head Exam Head Exam: ATRAUMATIC - Respiratory Exam Respiratory Exam: NORMAL BREATHING PATTERN - Extremities Exam Additional comments: RLE focused exam: Vasc: DP/PT pulses palpable 2/4 b/l. Skin temperature warm to warm from proximal to distal. CFT < 3 seconds to all digits b/l. No edema noted b/l Neuro: Epicritic and protective sensation grossly intact b/l Derm: Cicatrix with increased redness along its medial portion noted to anterior ankle. Skin surrounding cicatrix is hyperpigmented. No open lesions, wounds, maceration, xerosis or abnormal growths noted b/l. MSK: POP to cicatrix and along path of posterior tibial tendon near medial malleolus. Patient unable to dorsiflex or plantarflex ankle secondary to hx of ankle fusion - Neurological Exam Neurological exam: Alert, Oriented x3 Results - Vital Signs Recent Vital Signs: Last Vital Signs Temp 98.4 F 10/10/18 09:51 Pulse 100 H 10/10/18 09:51 Resp 18 10/10/18 09:51 BP 122/78 10/10/18 09:51 Pulse Ox 99 10/10/18 10:32 Assessment & Plan - Assessment and Plan (Free Text) Assessment: 46 year old male with PMH of seizures, right ankle fusion seen in ED complaining of increased pain to the right ankle. Plan: Patient seen and evaluated in ED Plan discussed with attending Dr. Correa Xrays reviewed: There appears to be increased radiolucency at the site of tibio- talar fusion possibly indicative of nonunion, break in the plate noted. hardware intact, no backing out of the screws noted. Afebrile, absent leukocytosis Well padded posterior splint applied Patient advised to follow up in podiatry clinic Patient to remain NWB to RLE patient showed verbal understanding all questions answered
--- NOTE | 2018-10-10 18:02 | RAD ---
Date of service: 10/10/2018 PROCEDURE: Right Ankle Radiographs. HISTORY: ankle pain COMPARISON: 02/07/2018. TECHNIQUE: 3 views obtained. FINDINGS: BONES: There is redemonstration of tibiotalar arthrodesis and fixation with metallic plate and multiple screws. There is redemonstration of a compression screw traversing the distal tibia and talus. There is a fracture in the tibial fixation plate at the level of the medial malleolus. There are no screw fractures. JOINTS: Status post fusion of the tibiotalar joint. Ankle mortise maintained. Talar dome intact SOFT TISSUES: Mild periarticular soft tissue swelling. OTHER FINDINGS: None. IMPRESSION: 1. Status post tibiotalar arthrodesis, stable appearance of hardware with fracture in the metallic plate in the tibia at the level of the medial malleolus. No other hardware complications. 2. Mild periarticular soft tissue swelling.
== END 2018-10-10 12:13 | disposition home or self-care (01) ==
LOC: H.ER 09:48
DX: G40.909 Epilepsy, unspecified, not intractable, without status epilepticus (principal); M25.571 Pain in right ankle and joints of right foot; Z86.59 Personal history of other mental and behavioral disorders; J45.909 Unspecified asthma, uncomplicated; Z98.1 Arthrodesis status

== ENCOUNTER 2018-10-30 07:38 | Emergency (ER) | payer MEDICAID ==
[2018-10-30 07:59] VITALS: BMI 27.6
[2018-10-30 08:00] VITALS: PULSE 80
[2018-10-30] MEDS ORDERED: Albuterol-Ipratrop 3 mg / 0.5 (3 ml) UD INH STA (08:11)
--- NOTE | 2018-10-30 08:13 | ED PDOC ---
HPI: General Adult Time Seen by Provider: 10/30/18 08:06 Additional Complaint(s): 48 y/o M with a PMHx of seizures presents c/o SOB and non-productive cough since this morning. Pt reports using a Bi-PAP every night; however, pt did not use it last night due to nasal watery discharge, No ill contacts. No recent travel. Pt denies fever, chills, chest pain, palpitations, abdominal pain, nausea, vomiting, diarrhea or peripheral edema. PMD: Dr Deric Horton at [facility]. . Allergies: Tafoya Meds: lamictal 200mg QD, folic acid -PMHx: epilepsy, anxiety, depression, alcoholic cirrhosis, seizure -PSHx: R ankle fracture repair. -Fhx: noncontributory -SHx: smokes ocasionally. Alcohol ocasional. Denies recreational drugs use. Past Medical History Vital Signs: Last Vital Signs Temp 98 F 10/30/18 07:59 Pulse 80 10/30/18 07:59 Resp 20 10/30/18 07:59 BP 128/78 10/30/18 07:59 Pulse Ox 100 10/30/18 07:59 - Medical History PMH: Asthma, Fractures (right ankle), Seizures (last one 2014) Denies: Chronic Kidney Disease - Surgical History Surgical History: Endoscopy, Hernia Repair (umbilical ) - Family History Family History: States: Unknown Family Hx - Immunization History Hx Tetanus Toxoid Vaccination: Yes (UTD as of 3 years ago) - Home Medications Home Medications: Ambulatory Orders Medication Instructions Recorded Sertraline [Zoloft] 50 mg PO HS #0 tab 09/18/14 Lamotrigine [Lamotrigine ER] 200 mg PO BID 03/29/15 traMADol [Ultram] 50 mg PO TID PRN 07/26/15 Ibuprofen [Motrin Tab] 600 mg PO Q8 PRN #60 tab 09/04/17 Naproxen [Naprosyn] 500 mg PO Q12H #20 tab 04/05/18 Sulfamethoxazole/Trimethoprim 1 tab PO BID #20 tab 04/05/18 [Bactrim DS 800 mg-160 mg] Ibuprofen [Motrin] 600 mg PO TID 7 Days tab 10/10/18 Albuterol HFA [Ventolin HFA 90 1 puff IH Q4H PRN 30 Days #1 10/30/18 mcg/actuation (8 g)] inhaler - Allergies Allergies/Adverse Reactions: Allergies Allergy/AdvReac Type Severity Reaction Status Date / Time tafoya AdvReac Mild URTICARIA Uncoded 09/04/17 17:23 Review of Systems Constitutional: Negative for: Fever, Chills Eyes: Negative for: Pain, Vision Change ENT: Negative for: Ear Pain, Ear Discharge Cardiovascular: Negative for: Chest Pain, Palpitations Respiratory: Positive for: Cough, Shortness of Breath. Negative for: Hemoptysis, Sputum Gastrointestinal: Negative for: Nausea, Vomiting, Abdominal Pain, Diarrhea Musculoskeletal: Negative for: Neck Pain Skin: Negative for: Rash Neurological: Negative for: Weakness, Numbness Physical Exam - Physical Exam Appears: Positive for: No Acute Distress, Uncomfortable Head Exam: Positive for: ATRAUMATIC Skin: Positive for: Normal Color, Warm, Rash (maculopapular dermatitis upper chest.) Eye Exam: Positive for: Normal appearance, EOMI, PERRL ENT: Positive for: Nasal Congestion. Negative for: Sinus Pain/Drainage, Pharyngeal Erythema Neck: Positive for: Normal, Painless ROM, Supple Cardiovascular/Chest: Positive for: Regular Rate, Rhythm Respiratory: Positive for: Decreased Breath Sounds. Negative for: Crackles, Rales, Wheezing Gastrointestinal/Abdominal: Positive for: Soft. Negative for: Tenderness, Organomegaly, Mass, Distended Neurological/Psych: Positive for: Awake, Alert - ECG O2 Sat by Pulse Oximetry: 100 Medical Decision Making Medical Decision Makin:15 --Chest X-ray ordered --Duo-Neb ordered. 10:55 --CXR reviewed, NO acute pulmonary disease. --Pt feels better 11:20 --Pt stable, will be discharged home with PRN Albuterol pump. Disposition - Clinical Impression Clinical Impression: Allergic rhinitis - Patient ED Disposition Is Patient to be Admitted: No - Disposition Referrals: Deric Horton MD [Family Provider] - Disposition: Routine/Home Disposition Time: 11:27 Condition: GOOD Additional Instructions: Please f/u with PCP within 1 week Return to ED if worsening symptoms Prescriptions: Albuterol HFA [Ventolin HFA 90 mcg/actuation (8 g)] 1 puff IH Q4H PRN 30 Days #1 inhaler PRN Reason: Shortness Of Breath Instructions: Seasonal Allergies (DC) Forms: [facility] (Sami)
--- NOTE | 2018-10-30 10:49 | RAD ---
Date of service: 10/30/2018 HISTORY: Shortness of breath COMPARISON: How TECHNIQUE: Chest PA and lateral FINDINGS: LINES AND TUBES: None. LUNG AND PLEURA: The lungs are well inflated and clear. No pleural effusion or pneumothorax. HEART AND MEDIASTINUM: The heart is not enlarged. No aortic atherosclerotic calcifications present. The hilar and mediastinal contours are within normal limits. SKELETAL STRUCTURES: The bony structures are within normal limits for the patient's age. VISUALIZED UPPER ABDOMEN: Normal. OTHER FINDINGS: None. IMPRESSION: No active pulmonary disease.
[2018-10-30 11:48] VITALS: BP 127/83; RESP 14; TEMP 97.9; O2SAT 97
== END 2018-10-30 11:41 | disposition home or self-care (01) ==
LOC: H.ER 07:38
DX: J30.9 Allergic rhinitis, unspecified (principal); G40.909 Epilepsy, unspecified, not intractable, without status epilepticus